=== PATIENT | female | born 1980 | race Caucasian/White ===

== ENCOUNTER 2017-12-24 18:23 | Emergency (ER) | payer BC ==
[2017-12-24 20:48] VITALS: BP 163/92
[2017-12-24] MEDS ORDERED: Albuterol 2.5 MG/3 ML NEB.SOL* (0.083%) INH ONE (21:04)
--- NOTE | 2017-12-24 21:10 | UC ---
UC General HPI - HPI Summary HPI Summary: PT STATES HAS HAD SOME COUGH FOR ABOUT 2 MONTHS. PAST 3 DAYS HAS DEVELOPED A HEADACHE, SORE THROAT, MORE COUGH WITH CONGESTION AND "TIGHT LUNGS". SHE ADMITS TO [facility] [facility] AND OCCASIONAL WHEEZING BUT DENIES HX ASTHMA AND NO CP. - History of Current Complaint Chief Complaint: UCRespiratory Stated Complaint: CONGESTION CHILLS HEADACHE Time Seen by Provider: 12/24/17 20:54 Hx Obtained From: Patient Hx Last Menstrual Period: 12/04/16 Onset/Duration: Gradual Onset Timing: Constant Onset Severity: Severe Current Severity: Severe Pain Intensity: 8 Associated Signs & Symptoms: Positive: Cough, Fever, Headache, SOB, Wheezing. Negative: Chest Pain - Allergy/Home Medications Allergies/Adverse Reactions: Allergies Allergy/AdvReac Type Severity Reaction Status Date / Time No Known Allergies Allergy Verified 12/24/17 20:48 Home Medications: Home Medications D-Methorphan/PE/Acetaminophen [Vicks Dayquil Liquid] 1 liq PO 12/24/17 [History] Dm/PE/Acetaminophen/Doxylamine [Vicks Dayquil-Nyquil Cold-Flu] 1 mis PO [History] PMH/Surg Hx/FS Hx/Imm Hx Previously Healthy: Yes - Surgical History Surgical History: None - Family History Known Family History: Negative: Cardiac Disease, Diabetes - Social History Occupation: Employed Full-time Alcohol Use: Weekly Substance Use Type: None Smoking Status (MU): Never Smoked Tobacco Review of Systems Constitutional: Fever, Chills Skin: Negative Eyes: Negative ENT: Other - RASPY VOICE Respiratory: Shortness Of Breath, Cough Cardiovascular: Negative Gastrointestinal: Negative Genitourinary: Negative Motor: Negative Neurovascular: Negative Musculoskeletal: Negative Neurological: Headache Is Patient Immunocompromised?: No All Other Systems Reviewed And Are Negative: Yes Physical Exam Triage Information Reviewed: Yes Appearance: Ill-Appearing Vital Signs: Initial Vital Signs Temp 100.4 F 12/24/17 20:43 Pulse 119 12/24/17 20:43 Resp 18 12/24/17 20:43 BP 163/92 12/24/17 20:43 Pulse Ox 100 12/24/17 20:43 Vital Signs Reviewed: Yes Eye Exam: Normal ENT: Positive: Pharynx normal, TMs normal, Hoarse voice. Negative: Nasal congestion, Nasal drainage, Tonsillar swelling, Tonsillar exudate, Trismus, Muffled voice, Sinus tenderness Neck: Positive: Supple, Nontender, No Lymphadenopathy Respiratory: Positive: Lungs clear, No respiratory distress, Decreased breath sounds Cardiovascular: Positive: No Murmur, Tachycardia Abdomen Description: Positive: Nontender, No Organomegaly, Soft Bowel Sounds: Positive: Present Musculoskeletal: Positive: ROM Intact Neurological Exam: Normal Skin Exam: Normal Course/Dx - Course Course Of Treatment: INFLUENZA A+ AND RAPID STREP=NEG. CXR NAD. Will tx with tamiflu and bronchodilator. improved aeration post neb tx here and pt notes breathing easier. pt's BP remained elevated on recheck and she has no hx of htn. she is ill and taking otc medications that may be a factor. this is not hypertensive urgency or emergency; however, she has been advised to f/u with her pcp in 3 days for a recheck and to assess her BP again. - Differential Dx - Multi-Symptom Provider Diagnoses: Influenza, Bronchospasm Discharge - Discharge Plan Condition: Stable Disposition: HOME Prescriptions: Albuterol HFA INHALER* [Ventolin HFA Inhaler*] 2 puff INH Q6H 14 Days #1 mdi Oseltamivir CAP* [Tamiflu CAP*] 75 mg PO BID 5 Days #10 cap Patient Education Materials: Influenza (ED), Hypertension (ED), Bronchospasm ( ED) Referrals: Zeina Avila NP [Primary Care Provider] - 3 Days Additional Instructions: IT IS IMPORTANT TO HAVE YOUR BP RECHECKED ON FOLLOW UP FOR ONGOING EVALUATION AND POSSIBLE TREATMENT
[2017-12-24] MEDS ORDERED: Oseltamivir CAP* 75 MG CAP PO ONE (21:13)
--- NOTE | 2017-12-24 21:34 | RAD ---
INDICATION: Fever, cough, shortness of breath. COMPARISON: No relevant prior exams available on the [facility] [place] [facility] PACS for comparison. TECHNIQUE: Dual energy PA and routine lateral views of the chest were obtained. REPORT: Elevated lung volumes. No focal pulmonary lesion, compelling alveolar consolidation, pleural effusion, pneumothorax. The heart, pulmonary vasculature, and mediastinal contours are unremarkable. IMPRESSION: Elevated lung volumes may reflect obstructive lung disease or simply exuberant inspiratory effort for examination. No evidence for pneumonia.
[2017-12-24] MEDS ORDERED: Ibuprofen TAB* 200 MG PO ONE (21:47)
== END 2017-12-24 22:05 | disposition home or self-care (01) ==
LOC: UCCORT 18:23
DX: J09.X2 Influenza due to identified novel influenza A virus with other respiratory manifestations (principal); J98.01 Acute bronchospasm
CPT/HCPCS: 71046; 87502; 87651; 99213; A9270-GY; G0463

== ENCOUNTER 2019-12-24 11:51 | Emergency (ER) | payer BC ==
[2019-12-24 12:01] VITALS: BP 121/72
--- NOTE | 2019-12-24 12:22 | UC ---
Abdominal Pain Female HPI - HPI Summary HPI Summary: severe abdominal pain x 1 days pain is severe 8 out of 10 , no radiation of pain worse with movements , better with rest and ibupprofen denies any fever, no n/v , + diarrhea, no urinary symptoms - History of Current Complaint Chief Complaint: UCAbdominalPain Stated Complaint: ABV/BACK PAIN Time Seen by Provider: 12/24/19 12:08 Hx Obtained From: Patient Hx Last Menstrual Period: 12/21/19-present ?: No Onset/Duration: Gradual Onset, Lasting Days - 1, Still Present Timing: Constant Severity Initially: Severe Severity Currently: Severe Pain Intensity: 8 Location: Diffuse Radiates: No Character: Aching Aggravating Factor(s): Movement Alleviating Factor(s): Position Associated Signs and Symptoms: Positive: Diaphoresis, Decreased Appetite, Diarrhea. Negative: Fever, Cough, Chest Pain, Dizzy, Back Pain, Constipation, Blood in Stool, Urinary Symptoms, Vaginal Bleeding, Vaginal Discharge, Nausea, Vomiting Allergies/Adverse Reactions: Allergies Allergy/AdvReac Type Severity Reaction Status Date / Time No Known Allergies Allergy Verified 12/24/19 11:55 Home Medications: Home Medications NK [No Home Medications Reported] 12/24/19 [History Confirmed 12/24/19] PMH/Surg Hx/FS Hx/Imm Hx - Additional Past Medical History Additional PMH: Gestational Diabetes Endocrine History: Diabetes - Surgical History Surgical History: None - Family History Known Family History: Negative: Cardiac Disease, Diabetes - Social History Alcohol Use: Weekly Substance Use Type: None Smoking Status (MU): Never Smoked Tobacco Review of Systems All Other Systems Reviewed And Are Negative: Yes Constitutional: Positive: Chills. Negative: Fever Skin: Positive: Negative Eyes: Positive: Negative ENT: Positive: Negative Cardiovascular: Positive: Negative Gastrointestinal: Positive: Abdominal Pain, Diarrhea Is Patient Immunocompromised?: No Physical Exam Triage Information Reviewed: Yes Appearance: Well-Nourished, Ill-Appearing, Pain Distress Vital Signs: Initial Vital Signs Temp 98 F 12/24/19 11:55 Pulse 97 12/24/19 11:55 Resp 14 12/24/19 11:55 BP 121/72 12/24/19 11:55 Pulse Ox 100 12/24/19 11:55 Vital Signs Reviewed: Yes Eyes: Positive: Conjunctiva Clear ENT: Positive: Normal ENT inspection, Hearing grossly normal, Pharynx normal Neck: Positive: Supple, Nontender, No Lymphadenopathy Respiratory: Positive: Chest non-tender, Lungs clear, Normal breath sounds Cardiovascular: Positive: RRR, No Murmur, Pulses Normal Abdomen Description: Positive: Soft, Guarding, Other: - severe diffuse tenderness. Negative: CVA Tenderness (R), CVA Tenderness (L), Distended Bowel Sounds: Positive: Present Abd Pain Female Course/Dx - Differential Dx/Diagnosis Provider Diagnosis: Abdominal pain Discharge ED - Sign-Out/Discharge Documenting (check all that apply): Patient Departure All imaging exams completed and their final reports reviewed: No Studies - Discharge Plan Condition: Good Disposition: HOME Patient Education Materials: Acute Abdominal Pain (ED) Referrals: Zeina Avila NP [Primary Care Provider] - Additional Instructions: severe abdominal pain ? acute appy please go Emergency Room for Ct / stat blood work - Billing Disposition and Condition Condition: GOOD Disposition: Home
== END 2019-12-24 12:29 | disposition home or self-care (01) ==
LOC: UCCORT 11:51
DX: R10.9 Unspecified abdominal pain (principal); E11.9 Type 2 diabetes mellitus without complications; R68.83 Chills (without fever); R19.7 Diarrhea, unspecified
CPT/HCPCS: 99212; G0463

== ENCOUNTER 2020-01-23 05:56 | Day surgery (SDC) | payer BC ==
[~2020-01-23 05:56] MED LIST: Buffered Lidocaine 1% SYRIN* 1 ML/SYRINGE INTRADERM ONE
[2020-01-23] MEDS ORDERED: Lactated Ringers 1000 ML Bag* 1,000 ML IV SCH (06:00)
[2020-01-23] MEDS ORDERED: Buffered Lidocaine 1% SYRIN* 1 ML/SYRINGE INTRADERM ONE (06:28)
[2020-01-23] MEDS ORDERED: Midazolam* 1 MG/ML 2 ML VIAL (2 MG) ONE (07:24)
[2020-01-23] MEDS ORDERED: fentaNYL* 50 MCG/ML 2 ML VIAL (100 MCG VIAL) ONE (07:24)
[2020-01-23] MEDS ORDERED: Lidocaine 2% PF * 5 ML VIAL ONE (07:24)
[2020-01-23] MEDS ORDERED: Rocuronium* 10 MG/ML VIAL ONE ×2 (07:24→08:04)
[2020-01-23] MEDS ORDERED: Propofol* 10 MG/ML 20 ML BTL ONE (07:24)
[2020-01-23] MEDS ORDERED: Bupivacaine 0.25% SDV* 30 ML ONE (07:41)
[2020-01-23] MEDS ORDERED: Metoclopramide IV* 5 MG/ML 2 ML VIAL ONE ×2 (07:49→09:59)
[2020-01-23] MEDS ORDERED: Ketorolac INJ* 30 MG/ML 1 ML VIAL ONE ×2 (07:49→09:59)
[2020-01-23] MEDS ORDERED: Dexamethasone IV* 4 MG/ML 1 ML (4 MG) ONE ×2 (07:49→09:59)
[2020-01-23] MEDS ORDERED: Ondansetron INJ* 2 MG/ML VIAL ONE ×2 (07:49→09:59)
[2020-01-23] MEDS ORDERED: Phenylephrine 40 MCG/ML SYRINGE ONE (07:50)
[2020-01-23] MEDS ORDERED: Naloxone* 0.4 MG/ML 1 ML VIAL IV PRN (08:10)
[2020-01-23] MEDS ORDERED: DiMENhydriNATE IV* 50 MG/ML VIAL IV PUSH PRN (08:10)
[2020-01-23] MEDS ORDERED: Acetaminophen TAB* 325 MG PO PRN (08:10)
[2020-01-23] MEDS ORDERED: Sugammadex * 200 MG/2 ML VIAL IV PUSH ONE ×2 (08:48→10:21)
[2020-01-23] MEDS ORDERED: HYDROmorphone INJ1* 1 MG/ML SYRINGE ONE (09:09)
[2020-01-23] MEDS ORDERED: oxyCODONE TAB* 5 MG TAB ONE (09:09)
[2020-01-23] MEDS ORDERED: Acetaminophen TAB* 325 MG ONE (09:10)
[2020-01-23] MEDS: oxyCODONE TAB* 5 MG TAB PO PRN ×2 (09:13→09:15)
[2020-01-23] MEDS: HYDROmorphone INJ1* 1 MG/ML SYRINGE IV PRN ×5 (09:14→09:35)
[2020-01-23] MEDS ORDERED: Bupivacaine 0.25% W/EPI* 10 ML SDV ONE (09:54)
[2020-01-23 10:25] VITALS: BP 132/84
--- NOTE | 2020-01-23 13:58 | OP ---
DATE OF OPERATION: 01/23/20 [facility] DATE OF : 78 SURGEON: Eric Ramon MD. ANESTHESIA: General endotracheal tube. STRIP CUTTER: Dr. Wyman. PRE-OP DIAGNOSES: Pelvic pain, bilateral ovarian cyst and desires permanent sterilization. POST-OP DIAGNOSES: Pelvic pain, bilateral ovarian cyst and desires permanent sterilization plus endometriosis. OPERATIVE PROCEDURE: Laparoscopic bilateral ovarian cystectomy, bilateral salpingectomy, and excision of endometriosis. ESTIMATED BLOOD LOSS: 500 cc. SPECIMEN: Bilateral cysts, endometriosis. IMPLANTS: Both fallopian tubes. COMPLICATIONS: None. FINDINGS: On laparoscopy, the anterior bladder flap appeared normal. The uterus appeared normal. The cul-de-sac was partially obliterated by the left ovary. The right ovary was more freely mobile. Both ovaries appeared to be cystic and enlarged approximately 5 cm each and the fallopian tubes contained some scarring and some areas of endometrial implants on the right fallopian tube and an endometrial implant was noted also on the left ovary. Liver surface is smooth. The gallbladder appeared normal. The appendix appeared normal. DESCRIPTION OF PROCEDURE: The patient identified and procedure identified as a laparoscopic bilateral tubal interruption and ovarian cystectomy, both bilateral. The patient was taken to the operating room, prepped and draped in usual fashion in dorsal lithotomy position under general anesthesia. A sponge stick was placed in the vagina. A small infraumbilical incision made and a Veress needle inserted through this, the abdomen was insufflated to 15 mmHg. The Veress needle was removed and the trocars inserted, trocars removed using the Visiport, trocar was removed from the sheath and then the laparoscope inserted. Above findings were noted. A incision was made on the left abdominal sidewall and the trocar inserted through this under direct visualization. Same procedure was carried on right, both approximately 8 cm away from the umbilicus. The right ovary was grasped and using the LigaSure with unipolar cautery, an incision was made in the ovary with clear fluid obtained. The cyst wall was grasped and extracted from the interior of the ovary. Good hemostasis was achieved. The right fallopian tube was grasped at its fimbriated ends, and using the LigaSure, the mesosalpinx was ligated, then incised down to the level of isthmus. This was removed. Now, attention was turned to the left ovary and incision was made along the left ovary on the tunica until chocolate fluid was obtained. The cyst wall was grasped and dissected off the ovary below until resistance was met and portion of the cyst wall was excised using the LigaSure and 3 bars on the cautery. This was continued to be teased around until majority of the endometrioma was excised, though was limited by the ability to dissect the endometrium off the inside of the ovary. Good hemostasis was verified. The nodule on the ovary was excised using the LigaSure. The left fallopian tube was grasped with the fimbriated ends and cauterizing along the mesosalpinx, the left fallopian tube was cauterized and then excised at the isthmic portion. Copious irrigation was utilized and suctioned out. Good hemostasis was verified. All instruments removed from the abdomen. The abdomen was deflated of CO2 and skin was closed with skin glue. All sponge and sponge sticks removed from the vagina and the patient returned to the recovery room in safe stable condition. All sponge and instrument counts were correct. [id number]/[facility] #: [id number] [facility]ITALLeigha
== END 2020-01-23 10:27 | disposition home or self-care (01) ==
LOC: OR 05:56
PROVIDERS: ATTEND Obstetrics & Gynecology
DX: Z30.2 Encounter for sterilization (principal); N83.292 Other ovarian cyst, left side; N83.291 Other ovarian cyst, right side; R10.2 Pelvic and perineal pain; N80.9 Endometriosis, unspecified
CPT/HCPCS: 81025; 88302; 88305; A9270-GY; J1100; J1170; J1885; J2250; J2405; J2704; J2765; J3010; J3490